=== PATIENT | female | born 1955 | race Caucasian/White ===

== ENCOUNTER 2018-12-09 10:17 | Emergency (ER) | payer OTHER ==
[~2018-12-09] VITALS: Ht 175.3 cm; Wt 90.7 kg
[2018-12-09] MEDS ORDERED: SYNTHROID175 MCG PO (10:32)
[2018-12-09] MEDS ORDERED: NORCO 5-325 TA1 EACH PO (12:52)
[2018-12-09] MEDS ORDERED: MOBIC15 MG PO (12:52)
[2018-12-09 13:21] VITALS: BP 110/74
== END 2018-12-09 13:22 | disposition home or self-care (01) ==
LOC: ER 10:17
DX: M25.512 Pain in left shoulder (principal); M54.2 Cervicalgia; R51 Headache; M25.551 Pain in right hip; M54.5 Low back pain; E03.9 Hypothyroidism, unspecified; V89.2XXA Person injured in unspecified motor-vehicle accident, traffic, initial encounter; Y93.89 Activity, other specified; Y92.410 Unspecified street and highway as the place of occurrence of the external cause; Y99.8 Other external cause status